=== PATIENT | male | born 1990 | race Asian ===

== ENCOUNTER 2017-01-23 15:00 | Emergency (ER) | payer BC ==
[~2017-01-23] VITALS: Ht 172.7 cm; Wt 78.0 kg
[2017-01-23 15:03] VITALS: Ht 172.7 cm; Wt 78.0 kg
--- NOTE | 2017-01-23 15:55 | RADRPT ---
PROCEDURE: US Scrotum. CLINICAL INDICATION: Pain TECHNIQUE: Multiple sonographic images of the scrotal region were obtained utilizing a linear arra y transducer with grayscale and color-flow and a Doppler imaging. The images were reviewed on a high -resolution PACS workstation. COMPARISON: No prior studies are available for comparison. FINDINGS: The right testicle is well visualized and has a normal echotexture. No focal areas of abnormal echog enicity are visualized. The right testicle measures measures 3.4 x 2.0 x 2.7 cm. There is normal col or-flow. The right epididymis is visualized and unremarkable in appearance. There is normal color-fl ow. The left testicle is well visualized and has a normal echotexture. No focal areas abnormal echogenic ity are visualized. The left testicle measures measures 3.9 x 1.9 x 2.7 cm. There is increased color -flow. The left epididymis is visualized and is unremarkable in appearance. There is increased color -flow. There are dilated veins of the pampiniform plexus on the left, consistent with varicocele. RPTAT: AA IMPRESSION: Left epididymal orchitis, with increased Doppler flow in the left testicle and epididymis.. Left varicocele. .Jayden Kearney MD, Date Time Electronically viewed and signed by .Jayden Kearney MD, MD on 01/23/2017 15:55 .S/
[2017-01-23] MEDS ORDERED: HYDROCODONE/APAP (10/325) TAB PO ONE (16:00)
[2017-01-23 16:56] LABS: ADD UMIC YES; UR ASCORBIC ACID NEGATIVE (NEGATIVE); UR BACTERIA FEW /HPF (NONE SEEN); UR BILIRUBIN (Dip) NEGATIVE (NEGATIVE); UR BLOOD (Dip) 2+ mg/dL (NEGATIVE); UR CLARITY SLIGHTLY CLOUDY (CLEAR); UR COLOR YELLOW (YELLOW); UR GLUCOSE (Dip) NEGATIVE (NEGATIVE); UR KETONES (Dip) NEGATIVE (NEGATIVE); UR LEUKOCYTE ESTERASE (Dip) 3+ Leu/ul (NEGATIVE); UR MUCUS FEW /HPF (NONE SEEN); UR NITRITE (Dip) NEGATIVE (NEGATIVE); UR RBC 116 /HPF (0-5); UR SPECIFIC GRAVITY (Dip) 1.026 (1.003-1.030); UR TOTAL PROTEIN (Dip) 1+ mg/dl (NEGATIVE); UR UROBILINOGEN (Dip) 2+ mg/dL (NEGATIVE)
[2017-01-23] MEDS ORDERED: DOXY100T20 PO (17:08)
--- NOTE | 2017-01-23 17:11 | ERD ---
ER Documentation Chief Complaint Date/Time DATE: 01/23/17 TIME: 17:09 Chief Complaint l. testicul pain x 3 days with blood in urine x today HPI Patient is a 26-year-old male who has left-sided testicle pain for the past 3 days. He states today at the end of his void there was some blood in his urine. He denies any dysuria or frequency. Denies any recent unprotected sex. Denies any purulent drainage. States he has had a fever. Denies any nausea or vomiting. ROS All systems reviewed and are negative except as per history of present illness. Medications Home Meds Active Scripts Doxycycline Hyclate* (Doxycycline Hyclate*) 100 Mg Tablet., 100 MG PO BID for 10 Days, TAB Prov:ZEE RUCKER PA-C 01/23/17 Allergies Allergies: Coded Allergies: No Known Allergy (Unverified , 01/23/17) PMhx/Soc History of Surgery: Yes (l knee sx x3, l foot sx) Hx Alcohol Use: Yes (socially) Hx Substance Use: No Hx Tobacco Use: No Smoking Status: Former smoker FmHx Family History: No diabetes Physical Exam Vitals Vital Signs Date Time Temp Pulse Resp B/P Pulse Ox O2 Delivery O2 Flow Rate FiO2 01/23/17 15:03 100.1 83 19 112/57 96 Physical Exam INITIAL VITAL SIGNS: Reviewed by me GENERAL: Awake, alert and oriented x 4, well appearing, nontoxic, speaking in full sentences. No acute distress HEAD: Atraumatic RESPIRATORY: Clear to auscultation bilaterally. Symmetric chest wall rise. No wheezing or rales. No accessory muscle use. CV: Regular rate and rhythm. No murmurs, rubs, or gallops. ABDOMEN: Soft, non-distended. Nontender. Negative [place]. Negative [place] point tenderness. No CVA tenderness bilaterally. No guarding. No rebound. : Bilateral testicles edematous but left testicle is tender, no erythema, no inguinal lymphadenopathy Results 24 hrs Laboratory Tests Test 01/23/17 16:30 Urine Color YELLOW Urine Clarity SLIGHTLY CLOUDY Urine pH 6.0 Urine Specific [place] 1.026 Urine Ketones NEGATIVEmg/dL Urine Nitrite NEGATIVEmg/dL Urine Bilirubin NEGATIVEmg/dL Urine Urobilinogen 2+mg/dL Urine Leukocyte Esterase 3+Loni/ul Urine Microscopic RBC 116/HPF Urine Microscopic WBC > 182/HPF Urine Bacteria FEW/HPF Urine Mucus FEW/HPF Urine Hemoglobin 2+mg/dL Urine Glucose NEGATIVEmg/dL Urine Total Protein 1+mg/dl Current Medications Medications (Trade) Dose Ordered Sig/Anibal Route PRN Reason Start Time Stop Time Status Last Admin Dose Admin Acetaminophen/ Hydrocodone Bitart (Henry (10/325)) 1 tab ONCE ONCE PO 01/23/17 16:00 01/23/17 16:01 DC 01/23/17 16:00 Ceftriaxone Sodium (Rocephin) 250 mg ONCE ONCE IM 01/23/17 17:30 01/23/17 17:31 Procedures/MDM Patient presents with testicular pain. He has temperature 100.1. He was given pain medications. Urine shows infection. Ultrasound shows evidence of epididymitis. No evidence of torsion. Patient was given ceftriaxone here in the emergency room and discharged with doxycycline. Patient counseled regarding my diagnostic impression and care plan. Prior to discharge all questions answered. Pt agrees with treatment plan and understands strict return precautions. Pt is instructed to follow up with primary care provider within 24- 48 hours. Precautionary instructions provided including instructions to return to the ER if not improving or for any worsening or changing symptoms or concerns. Departure Diagnosis: Primary Impression: Epididymitis Condition: Stable Patient Instructions: Epididymitis Additional Instructions: Call your primary care doctor TOMORROW for an appointment during the next 1-2 days.See the doctor sooner or return here if your condition worsens before your appointment time. ZEE RUCKER PA-C Jan 23, 2017 17:11
[2017-01-23] MEDS ORDERED: LIDOCAINE 2% (MDV) 20 ML INJ INJ STA (17:13)
[2017-01-23] MEDS ORDERED: CEFTRIAXONE 250 MG INJ IM ONE (17:30)
[2017-01-23] MEDS ORDERED: HYDR-906 PO (17:38)
== END 2017-01-23 18:00 | disposition home or self-care (01) ==
LOC: FTE 15:00
DX: N45.1 Epididymitis (principal); Z87.891 Personal history of nicotine dependence
CPT/HCPCS: 76870; 81001; 96372; 99285; J0696